=== PATIENT | female | born 1935 | race Caucasian/White ===

== ENCOUNTER 2017-06-26 11:03 | Inpatient (IN) | payer MEDICARE, MEDICAID ==
[2017-06-26] MEDS ORDERED: Sodium Chloride 0.9% 10 ML Syringe FLUSH PRN ×2 (11:16→17:17)
--- NOTE | 2017-06-26 11:21 | EDM.PDOC ---
ED HPI GENERAL MEDICAL PROBLEM - General Chief Complaint: Neuro Symptoms/Deficits Stated Complaint: STROKE SYMPTOMS Time Seen by Provider: 06/26/17 11:04 Source of Information: Reports: Patient, Retirement Records History Limitations: Reports: Altered Mental Status - History of Present Illness INITIAL COMMENTS - FREE TEXT/NARRATIVE: Patient is a 82 y/o female from [facility] who presents to the ED with left sided weakness, fatigue, not using her left arm, and flat affect. 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 Patient's last known well time was 1300 hrs. yesterday. Patient awoke this morning systematic. Patient complains of pain with urination. Denies fever/chills, headaches, vision changes, difficulty swallowing , nausea/vomiting, chest pain, shortness of breath, or any additional complaints. Patient is on baby aspirin 81 mg every day, Plavix 75 mg every day, potassium replacement 10 mEq 2 By Mouth Twice a Day, Amiodarone 200 Mg Every Day by Mouth Daily, levothyroxine 100 g orally one tab by mouth daily, lisinopril 10 mg one tab by mouth every evening and lisinopril 20 mg by mouth in the a.m. - Related Data Allergies Allergy/AdvReac Type Severity Reaction Status Date / Time strawberry [[place]] Allergy Hives Verified 06/26/17 11:42 Home Meds: Home Meds Aspirin [Low Dose Aspirin EC] 81 mg PO 1100 06/09/14 [History] Clopidogrel [Plavix] 75 mg PO 1100 06/09/14 [History] Lisinopril 20 mg PO 1100 06/09/14 [History] Potassium Chloride 20 meq PO 1100,1700 06/09/14 [History] Amiodarone [Cordarone] 400 mg PO 1100 08/23/14 [History] Levothyroxine [Synthroid] 88 mcg PO 1100 08/23/14 [History] Acetaminophen [Tylenol] 650 mg PO Q6H 06/26/17 [History] Lisinopril 10 mg PO 1700 06/26/17 [History] Methyl Salicylate/Menthol [Bengay Greaseless Cream] 57 gm TP BID PRN 06/26/17 [ History] Wheat Dextrin [Benefiber] 1 each PO DAILY 06/26/17 [History] Social & Family History - Tobacco Use Smoking Status *Q: Unknown Ever Smoked Second Hand Smoke Exposure: No - Alcohol Use Days Per Week of Alcohol Use: 0 - Recreational Drug Use Recreational Drug Use: No ED ROS GENERAL - Review of Systems Review Of Systems: See Below Constitutional: Reports: Weakness. Denies: Fever, Chills HEENT: Reports: No Symptoms Respiratory: Denies: Shortness of Breath, Cough, Sputum Cardiovascular: Denies: Chest Pain, Dyspnea on Exertion GI/Abdominal: Denies: Abdominal Pain, Constipation, Diarrhea, Nausea, Vomiting : Reports: Dysuria Musculoskeletal: Reports: No Symptoms Neurological: Reports: Headache, Difficulty Walking, Weakness. Denies: Dizziness, Numbness, Tingling ED EXAM, NEURO - Physical Exam Exam: See Below Exam Limited By: No Limitations General Appearance: Alert, WD/WN, No Apparent Distress Eye Exam: Bilateral Eye: EOMI, Nystagmus (none stated), PERRL Ears: Hearing Grossly Normal Nose: Normal Inspection Throat/Mouth: Normal Voice, No Airway Compromise, Other (Patient stated there is no reason to smile. Thus did not cooperate. ) Head Exam: Atraumatic, Normocephalic Neck: Normal Inspection, Supple, Non-Tender, Full Range of Motion Respiratory/Chest: No Respiratory Distress, Lungs Clear, Normal Breath Sounds, No Accessory Muscle Use, Chest Non-Tender Cardiovascular: Normal Peripheral Pulses, Regular Rate, Rhythm, No Murmur GI/Abdominal: Normal Bowel Sounds, Soft, No Organomegaly, No Distention, Tender (suprapubic region) Neurological: Alert, Normal Mood/Affect, CN II-XII Intact, No Motor/Sensory Deficits, Oriented x 3, Other (Positive facial droop, pronator drift, weakness to the upper and lower extremities.). No: Normal Dorsiflexion (Weakness to the left papers in the right), Normal Plantar Flexion (Weakness to the left in comparison to the right) Back Exam: Normal Inspection Extremities: Normal Inspection, Non-Tender, No Pedal Edema Psychiatric: Normal Affect, Normal Mood Skin Exam: Warm, Dry, Intact, Normal Color, No Rash Course - Vital Signs Last Recorded V/S: Last Vital Signs Temp 97.9 F 06/26/17 19:22 Pulse 59 L 06/26/17 19:22 Resp 18 06/26/17 19:22 BP 172/78 H 06/26/17 19:23 Pulse Ox 93 L 06/26/17 19:22 - Orders/Labs/Meds Orders: Active Orders 24 hr Category Date Time Status Head wo Cont [CT] Stat Exams 06/26/17 11:16 Taken Sodium Chloride 0.9% [Saline Flush] Med 06/26/17 11:16 Active 10 ml FLUSH ASDIRECTED PRN Peripheral IV Insertion Adult [OM.PC] Stat Oth 06/26/17 11:16 Ordered Medication Orders Acetaminophen (Tylenol) 650 mg PO Q4H PRN PRN Reason: Pain (Mild 1-3)/fever Last Admin: 06/26/17 21:18 Dose: 650 mg Hydrocodone Bitart/Acetaminophen ([place] 325-5 Mg) 1 tab PO Q4H PRN PRN Reason: Pain (moderate 4-6) Albuterol/Ipratropium (Duoneb 3.0-0.5 Mg/3 Ml) 3 ml NEB Q4H PRN PRN Reason: Shortness Of Breath/wheezing Amiodarone HCl (Cordarone) 400 mg PO DAILY@1100 [facility] Aspirin (Halfprin) 81 mg PO DAILY@1100 [facility] Bisacodyl (Dulcolax) 5 mg PO DAILY PRN PRN Reason: Constipation Clopidogrel Bisulfate (Plavix) 75 mg PO DAILY@1100 [facility] Docusate Sodium (Colace) 100 mg PO BID PRN PRN Reason: Constipation Hydromorphone HCl (Dilaudid) 0.25 mg IVPUSH Q4H PRN PRN Reason: Pain (severe 7-10) Promethazine HCl 12.5 mg/ (Sodium Chloride) 50.5 mls @ 100 mls/hr IV Q6H PRN PRN Reason: Nausea/Vomiting Levothyroxine Sodium (Synthroid) 88 mcg PO DAILY@1100 [facility] Lisinopril (Prinivil) 10 mg PO DAILY@1700 [facility] Lisinopril (Prinivil) 20 mg PO DAILY@1100 [facility] Lorazepam (Ativan) 0.25 mg IV Q6H PRN PRN Reason: Anxiety Last Admin: 06/26/17 21:19 Dose: 0.25 mg Non-Formulary Medication (Methyl Salicylate/Menthol) 57 gm TP BID PRN PRN Reason: sore joints Non-Formulary Medication (Wheat Dextrin [Benefiber]) 1 each PO DAILY [facility] Ondansetron HCl (Zofran) 4 mg IV Q6H PRN PRN Reason: Nausea/Vomiting Polyethylene Glycol (Miralax) 17 gm PO DAILY PRN PRN Reason: Constipation Potassium Chloride (Klor-Con 10) 20 meq PO BID@1100,1700 [facility] Senna/Docusate Sodium (Senna Plus) 1 tab PO BID PRN PRN Reason: Constipation Sodium Chloride (Saline Flush) 10 ml FLUSH ASDIRECTED PRN PRN Reason: Keep Vein Open Last Admin: 06/26/17 11:40 Dose: 10 ml Sodium Chloride (Saline Flush) 10 ml FLUSH ASDIRECTED PRN PRN Reason: Keep Vein Open Temazepam (Restoril) 7.5 mg PO BEDTIME PRN PRN Reason: Sleep Last Admin: 06/26/17 22:28 Dose: 7.5 mg Labs: Laboratory Tests 06/26/17 06/26/17 06/26/17 Range/Units 11:09 11:13 11:13 WBC 8.23 (3.98-10.04) K/mm3 RBC 5.10 (3.98-5.22) M/mm3 Hgb 15.0 (11.2-15.7) gm/L Hct 46.6 H (34.1-44.9) % MCV 91.4 (79.4-94.8) fl MCH 29.4 (25.6-32.2) pg MCHC 32.2 (32.2-35.5) g/dl RDW Std Deviation 52.4 H (36.4-46.3) fL Plt Count 256 (182-369) K/mm3 MPV 10.3 (9.4-12.3) fl Neut % (Auto) 55.2 (34.0-71.1) % Lymph % (Auto) 35.7 (19.3-51.7) % [place] % (Auto) 7.8 (4.7-12.5) % Eos % (Auto) 0.7 (0.7-5.8) Baso % (Auto) 0.4 (0.1-1.2) % Neut # (Auto) 4.54 (1.56-6.13) K/mm3 Lymph # (Auto) 2.94 (1.18-3.74) K/mm3 [place] # (Auto) 0.64 H (0.24-0.36) K/mm3 Eos # (Auto) 0.06 (0.04-0.36) K/mm3 Baso # (Auto) 0.03 (0.01-0.08) K/mm3 PT 10.5 (8.0-13.0) SECONDS INR 0.97 APTT 26 (22-36) SECONDS Sodium (136-145) mEq/L Potassium (3.5-5.1) mEq/L Chloride (98-107) mEq/L Carbon Dioxide (21-32) mEq/L Anion Gap (5-15) BUN (7-18) mg/dL Creatinine (0.55-1.02) mg/dL Est Cr Clr Drug Dosing mL/min Estimated GFR (MDRD) (>60) mL/min BUN/Creatinine Ratio (14-18) Glucose (83-115) mg/dL POC Glucose 133 H (83-110) mg/dL Calcium (8.5-10.1) mg/dL Total Bilirubin (0.2-1.0) mg/dL AST (15-37) U/L ALT (14-59) U/L Alkaline Phosphatase (46-116) U/L Troponin I (0.00-0.056) ng/mL C-Reactive Protein (<1.0) mg/dL Total Protein (6.4-8.2) g/dl Albumin (3.4-5.0) g/dl Globulin gm/dL Albumin/Globulin Ratio (1-2) TSH 3rd Generation (0.358-3.74) uIU/mL Urine Color (Yellow) Urine Appearance (Clear) Urine pH (5.0-8.0) Ur Specific [place] (1.005-1.030) Urine Protein (Negative) Urine Glucose (UA) (Negative) Urine Ketones (Negative) Urine Occult Blood (Negative) Urine Nitrite (Negative) Urine Bilirubin (Negative) Urine Urobilinogen (0.2-1.0) Ur Leukocyte Esterase (Negative) Urine RBC (0-5) /hpf Urine WBC (0-5) /hpf Ur Epithelial Cells (0-5) /hpf Urine Bacteria (FEW) /hpf Urine Mucus (FEW) /hpf 06/26/17 06/26/17 06/26/17 Range/Units 11:13 11:13 11:27 WBC (3.98-10.04) K/mm3 RBC (3.98-5.22) M/mm3 Hgb (11.2-15.7) gm/L Hct (34.1-44.9) % MCV (79.4-94.8) fl MCH (25.6-32.2) pg MCHC (32.2-35.5) g/dl RDW Std Deviation (36.4-46.3) fL Plt Count (182-369) K/mm3 MPV (9.4-12.3) fl Neut % (Auto) (34.0-71.1) % Lymph % (Auto) (19.3-51.7) % [place] % (Auto) (4.7-12.5) % Eos % (Auto) (0.7-5.8) Baso % (Auto) (0.1-1.2) % Neut # (Auto) (1.56-6.13) K/mm3 Lymph # (Auto) (1.18-3.74) K/mm3 [place] # (Auto) (0.24-0.36) K/mm3 Eos # (Auto) (0.04-0.36) K/mm3 Baso # (Auto) (0.01-0.08) K/mm3 PT (8.0-13.0) SECONDS INR APTT (22-36) SECONDS Sodium 142 (136-145) mEq/L Potassium 4.0 (3.5-5.1) mEq/L Chloride 105 (98-107) mEq/L Carbon Dioxide 25 (21-32) mEq/L Anion Gap 16.0 H (5-15) BUN 13 (7-18) mg/dL Creatinine 1.1 H (0.55-1.02) mg/dL Est Cr Clr Drug Dosing 34.26 mL/min Estimated GFR (MDRD) 47 (>60) mL/min BUN/Creatinine Ratio 11.8 L (14-18) Glucose 141 H (83-115) mg/dL POC Glucose (83-110) mg/dL Calcium 9.3 (8.5-10.1) mg/dL Total Bilirubin 0.6 (0.2-1.0) mg/dL AST 19 (15-37) U/L ALT 23 (14-59) U/L Alkaline Phosphatase 121 H (46-116) U/L Troponin I < 0.017 (0.00-0.056) ng/mL C-Reactive Protein 0.9 (<1.0) mg/dL Total Protein 7.5 (6.4-8.2) g/dl Albumin 3.9 (3.4-5.0) g/dl Globulin 3.6 gm/dL Albumin/Globulin Ratio 1.1 (1-2) TSH 3rd Generation 2.219 (0.358-3.74) uIU/mL Urine Color Yellow (Yellow) Urine Appearance Slt cloudy H (Clear) Urine pH 6.0 (5.0-8.0) Ur Specific [place] 1.015 (1.005-1.030) Urine Protein Negative (Negative) Urine Glucose (UA) Negative (Negative) Urine Ketones Negative (Negative) Urine Occult Blood Trace-lysed H (Negative) Urine Nitrite Negative (Negative) Urine Bilirubin Negative (Negative) Urine Urobilinogen 0.2 (0.2-1.0) Ur Leukocyte Esterase 3+ H (Negative) Urine RBC 0-5 (0-5) /hpf Urine WBC 50-75 H (0-5) /hpf Ur Epithelial Cells 0-5 (0-5) /hpf Urine Bacteria Many H (FEW) /hpf Urine Mucus Not seen (FEW) /hpf Meds: Medications Generic Name Dose Route Start Last Admin Trade Name Freq PRN Reason Stop Dose Admin Acetaminophen 650 mg 06/26/17 17:17 06/26/17 21:18 Tylenol PO 650 mg Q4H PRN Administration Pain (Mild 1-3)/fever Hydrocodone Bitart/Acetaminophen 1 tab 06/26/17 17:17 [place] 325-5 Mg PO Q4H PRN Pain (moderate 4-6) Albuterol/Ipratropium 3 ml 06/26/17 17:17 Duoneb 3.0-0.5 Mg/3 Ml NEB Q4H PRN Shortness Of Breath/wheezing Amiodarone HCl 400 mg 06/27/17 11:00 Cordarone PO DAILY@1100 [facility] Aspirin 81 mg 06/27/17 11:00 Halfprin PO DAILY@1100 [facility] Bisacodyl 5 mg 06/26/17 17:17 Dulcolax PO DAILY PRN Constipation Clopidogrel Bisulfate 75 mg 06/27/17 11:00 Plavix PO DAILY@1100 [facility] Docusate Sodium 100 mg 06/26/17 17:17 Colace PO BID PRN Constipation Hydromorphone HCl 0.25 mg 06/26/17 17:17 Dilaudid IVPUSH Q4H PRN Pain (severe 7-10) Promethazine HCl 12.5 mg/ 50.5 mls @ 100 mls/hr 06/26/17 17:17 Sodium Chloride IV Q6H PRN Nausea/Vomiting Levothyroxine Sodium 88 mcg 06/27/17 11:00 Synthroid PO DAILY@1100 [facility] Lisinopril 10 mg 06/27/17 17:00 Prinivil PO DAILY@1700 [facility] Lisinopril 20 mg 06/27/17 11:00 Prinivil PO DAILY@1100 [facility] Lorazepam 0.25 mg 06/26/17 17:17 06/26/17 21:19 Ativan IV 0.25 mg Q6H PRN Administration Anxiety Non-Formulary Medication 57 gm 06/26/17 17:23 Methyl Salicylate/Menthol TP BID PRN sore joints Non-Formulary Medication 1 each 06/27/17 09:00 Wheat Dextrin [Benefiber] PO DAILY [facility] Ondansetron HCl 4 mg 06/26/17 17:17 Zofran IV Q6H PRN Nausea/Vomiting Polyethylene Glycol 17 gm 06/26/17 17:17 Miralax PO DAILY PRN Constipation Potassium Chloride 20 meq 06/27/17 11:00 Klor-Con 10 PO BID@1100,1700 [facility] Senna/Docusate Sodium 1 tab 06/26/17 17:17 Senna Plus PO BID PRN Constipation Sodium Chloride 10 ml 06/26/17 11:16 06/26/17 11:40 Saline Flush FLUSH 10 ml ASDIRECTED PRN Administration Keep Vein Open Sodium Chloride 10 ml 06/26/17 17:17 Saline Flush FLUSH ASDIRECTED PRN Keep Vein Open Temazepam 7.5 mg 06/26/17 17:17 06/26/17 22:28 Restoril PO 7.5 mg BEDTIME PRN Administration Sleep Discontinued Medications Generic Name Dose Route Start Last Admin Trade Name Freq PRN Reason Stop Dose Admin Acetaminophen 650 mg 06/26/17 17:30 06/26/17 18:39 Tylenol PO Not Given Q6H [facility] Aspirin 243 mg 06/26/17 12:39 06/26/17 14:19 Aspirin PO 06/26/17 12:40 243 mg ONETIME ONE Administration Ceftriaxone Sodium 1 gm/ 100 mls @ 200 mls/hr 06/26/17 12:10 06/26/17 12:20 Sodium Chloride IV 06/26/17 12:39 200 mls/hr ONETIME ONE Administration Labetalol HCl 10 mg 06/26/17 11:26 06/26/17 11:37 Normodyne IVPUSH 06/26/17 11:27 10 mg ONETIME ONE Administration Protocol - Re-Assessments/Exams Free Text/Narrative Re-Assessment/Exam: Peripheral IV established. Initial labs and studies include CBC, chem 14, INR, PTT, troponin, TSH, UA, head CT without contrast, and EKG. 06/26/17 11:29 last known well time was approx. 1300 hrs yesterday. Patient awoke symptomatically this morning. CT the head reviewed with no signs for intracranial hemorrhage. Final interpretation pending. Blood pressure remains 215/94 with a heart rate of 71. Ordered labetalol 10 mg IVP. 06/26/17 11:32 EKG sinus rhythm at a rate of 69 with a left bundle branch block. No acute ST changes noted. This was compared to previous EKG obtained 07/2014. Patient had incomplete left bundle branch block at that time. CT of the head impression: Senescent changes noted. No acute intracranial abnormality. 06/26/17 11:52 Reassessment, patients condition unchanged. BP 168/75 HR 58. Son is present. Discussed findings with him and testing taking place. Requests patient stay here in [place] if able. Patient is a DNR. Labs reviewed: White blood cell count 8.23, hemoglobin 15.0, platelets 256, coags are normal, sodium 142, potassium 4.0, AG 16, creatinine 1.1, glucose 141 , alk phosphatase 121, troponin less than 0.017, TSH is 2.219. UA slightly cloudy, trace blood, leukocyte esterase 3+, wbc's 50-75, bacteria many. Urine culture ordered. Ordered rocephin 1 gram IV. QTc is 536. Preferred levaquin but this can prolong QT. 06/26/17 12:[address] Lopez. He has accepted the patient. 1216 Reassessment, patient is resting comfortably. No complaints at this time. Weakness persist. Patient did finally smile with facial droop noted to the left side. Minimal slurred speech. No difficulty swallowing. 06/26/17 13:10 patient took 81 mg of aspirin this morning. Ordered 243 mg by mouth. Awaiting for patient be transferred over to the floor. Vital signs stable. Patient's status unchanged. Patient has been taken over to the floor. 06/26/17 14:14 Order for admission placed. Departure - Departure Time of Disposition: 14:14 Disposition: Admitted As Inpatient 64 Condition: Fair Clinical Impression: Stroke-like symptom Cerebrovascular accident (CVA) Qualifiers: CVA mechanism: embolism Precerebral and cerebral artery: unspecified cerebral artery Qualified Code(s): I63.40 - Cerebral infarction due to embolism of unspecified cerebral artery Urinary tract infection Qualifiers: Urinary tract infection type: acute cystitis Hematuria presence: with hematuria Qualified Code(s): N30.01 - Acute cystitis with hematuria - Discharge Information - My Orders Last 24 Hours: My Active Orders 06/26/17 11:16 Head wo Cont [CT] Stat Sodium Chloride 0.9% [Saline Flush] 10 ml FLUSH ASDIRECTED PRN Peripheral IV Insertion Adult [OM.PC] Stat - Assessment/Plan Last 24 Hours: My Active Orders 06/26/17 11:16 Head wo Cont [CT] Stat Sodium Chloride 0.9% [Saline Flush] 10 ml FLUSH ASDIRECTED PRN Peripheral IV Insertion Adult [OM.PC] Stat
[2017-06-26] MEDS ORDERED: Labetalol 100 MG/20 ML MDV IVPUSH ONE (11:26)
[2017-06-26] MEDS ORDERED: cefTRIAXone 1 GM in Sodium Chloride 0.9% 100 ML IV ONE (12:10)
[2017-06-26] MEDS ORDERED: Aspirin 81 MG Tab.Chew PO ONE (12:39)
--- NOTE | 2017-06-26 13:06 | PCM.HP ---
H&P History of Present Illness - General Date of Service: 06/26/17 Admit Problem/Dx: CVA Source of Information: Patient, Family, Old Records, Provider, RN Notes Reviewed History Limitations: Reports: Physical Impairment - History of Present Illness Initial Comments - Free Text/Narative: This is an 82 yo elderly white female with past medical hx/o HTN, HLD, Hypothyroidism, Hypokalemia and Hypomagnesemia, Pseudogout, Hx/o Cardiac Arrhythmia on Amiodarone, OA, and Depression who presents to ED with complaints of generalized weakness that started today. Her chief of complaint is associated with fatigue, 2 assist with standing, dragging left foot with walking and not using her left arm as well as flat affect. Patient carries a hx/o CVA with Aspiration. She lives at [place] and is very independent. Her last known well was at about 1300 yesterday but woke up with the above symptoms this morning. Patient reports no issues. She denies any other neurologic deficits. Her initial workup in the emergency department shows a CBC that is unremarkable. Her chemistry is remarkable for anion gap 16, creatinine of 1.1, glucose of 141, alkaline phosphatase of 131. Her troponin and TSH levels are normal. Her UA is positive but not impressive for UTI. Her EKG shows sinus rhythm. Head CT scan V-rad report reads no acute intra-cranial abnormality. Patient is being admitted for medical management of stroke. She is DNR/DNI. - Related Data Allergies/Adverse Reactions: Allergies Allergy/AdvReac Type Severity Reaction Status Date / Time strawberry [[place]] Allergy Hives Verified 06/26/17 11:42 Home Medications: Home Meds Aspirin [Low Dose Aspirin EC] 81 mg PO 1100 06/09/14 [History] Clopidogrel [Plavix] 75 mg PO 1100 06/09/14 [History] Lisinopril 20 mg PO 1100 06/09/14 [History] Potassium Chloride 20 meq PO 1100,1700 06/09/14 [History] Amiodarone [Cordarone] 400 mg PO 1100 08/23/14 [History] Levothyroxine [Synthroid] 88 mcg PO 1100 08/23/14 [History] Acetaminophen [Tylenol] 650 mg PO Q6H 06/26/17 [History] Lisinopril 10 mg PO 1700 06/26/17 [History] Methyl Salicylate/Menthol [B[place] Greaseless Cream] 57 gm TP BID PRN 06/26/17 [ History] Wheat Dextrin [Benefiber] 1 each PO DAILY 06/26/17 [History] Past Medical History HEENT History: Reports: Impaired Vision Cardiovascular History: Reports: Hypertension, Other (See Below) Other Cardiovascular History: Pt on amioderone unsure why denies any heart problems MEDICAL LANGUAGE SPECIALIST History: Reports: Endocrine/Metabolic History: Reports: Hypothyroidism Social & Family History - Family History Family Medical History: Unobtainable - Tobacco Use Smoking Status *Q: Unknown Ever Smoked Second Hand Smoke Exposure: No - Caffeine Use Caffeine Use: Reports: Coffee - Alcohol Use Days Per Week of Alcohol Use: 0 - Recreational Drug Use Recreational Drug Use: No H&P Review of Systems - Review of Systems: Review Of Systems: See Below General: Reports: Weakness. Denies: Fever, Chills HEENT: Reports: No Symptoms Pulmonary: Denies: Shortness of Breath Cardiovascular: Denies: Chest Pain Gastrointestinal: Denies: Abdominal Pain, Nausea, Vomiting Genitourinary: Reports: No Symptoms Musculoskeletal: Reports: No Symptoms Skin: Denies: Cyanosis, Rash, Erythema Psychiatric: Reports: Depression. Denies: Confusion, Anxiety, Agitation, Hallucinations, Suicidal Ideation, Hallucinations (Auditory) Neurological: Reports: Headache, Difficulty Walking, Weakness, Gait Disturbance. Denies: Dizziness, Numbness, Syncope, Tingling, Tremors, Trouble Speaking, Change in Speech Hematologic/Lymphatic: Reports: No Symptoms Immunologic: Reports: No Symptoms Exam - Exam Exam: See Below - Vital Signs Vital Signs: Last Vital Signs Temp 36.3 C 06/26/17 11:10 Pulse 61 06/26/17 11:37 Resp 18 06/26/17 11:10 BP 182/131 H 06/26/17 11:37 Pulse Ox 97 06/26/17 11:10 Weight: 74.843 kg - Exam General: Alert, Cooperative, Mild Distress HEENT: Conjunctiva Clear, EACs Clear, EOMI, Hearing Intact, Mucosa Moist & [place] , Nares Patent, Normal Nasal Septum, Posterior Pharynx Clear, Pupils Equal, Pupils Reactive Neck: Supple, Trachea Midline, +2 Carotid Pulse wo Bruit Lungs: Normal Respiratory Effort, Decreased Breath Sounds Cardiovascular: Regular Rate, Regular Rhythm GI/Abdominal Exam: Normal Bowel Sounds, Soft, Non-Tender, No Organomegaly, No Distention, No Abnormal Bruit, No Mass, Other (No suprapubic tenderness on palpation) (Female) Exam: Deferred Rectal (Female) Exam: Deferred Back Exam: Normal Inspection, Decreased Range of Motion. No: CVA Tenderness (L) , CVA Tenderness (R) Extremities: Normal Inspection, Normal Range of Motion, Non-Tender, No Pedal Edema, Normal Capillary Refill Peripheral Pulses: 2+: Posterior Tibial (L), Posterior Tibial (R), Dorsalis Pedis (L), Dorsalis Pedis (R) Skin: Warm, Dry, Intact Neuro Extensive - Mental Status: Oriented x3, Normal Cognition, Memory Intact Neuro Extensive - Motor, Sensory, Reflexes: Abnormal Gait. No: CN II-XII Intact (left sided weakness, pos pronator drift, facial droop, could not make wrinkes), Tongue Deviation (L), Tongue Deviation (R), Dysarthria, Receptive Aphasia, Expressive Aphasia, Total Aphasia Psychiatric: Alert, Normal Mood. 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 with a documented BP of 216/93 mmHg - Risk Factors: Hx/o CVA with residual aspiration, HTN, HLD, and Hx/o Cardiac Arrhythmias (on Amiodarone) - Head CT scan: negative for acute intra-cranial abnormality - She is already on 81 mg po ASA, 75 mg po Plavix and Lipitor 10 mg po daily - Stroke Protocol: Aspiration precaution, bedside swallowing study, [employer]GER eval , PT/OT and Routine Neuro check - Unclear how how was her symptoms, since she woke up with symptoms - She would not be a good candidate for TPN, very high with her advance age and being on combo ASA/Plavix - Recommendations: Permissive hypertension with SBP 180-190 mmHg - Offered MRI/MRA in am but after carefully discussing the goals of treatment for her, family decided not to have Brain MRI and Head/Neck MRA since it unlikely that our medical management would change Malignant HTN - Unknown baseline, she does not really check her BP Meds - She presented to ED in Malignant HTN with a documented BP of 216/93 mmHg - She received initial treatment of 10 mg IV Labetolol x1 and her pressure dropped to 159/73 - Allow Permissive HTN in the setting of stroke - PRN Meds if SBP > 220 mmHg or DBP > 120 mmHg w/ Labetolol 10 mg IV for 1-2 mins may repeat dsoe q 10 mins to a maximum dose of 300 mg. If no response, may use Nicardipine IV per protocol Asymptomatic Bacteriuria - UA not very impressive - She has no complaints - Received 1 gram Rocephin in ED - UA Cx/Sx Chronic: HTN HLD Hypothyroidism Hypokalemia and Hypomagnesemia Pseudogout OA Hx/o CVA with Aspiration Hx/o Cardiac Arrhythmia Depression Plan: Admit to Med-Surge With Tele Routine AM Labs Resume Home Meds Lipid Panel in AM Carotid Duplex U/S PT/OT/[employer] MANAGER consult SW/CM for d/c planning May need short tem rehab/SNF Code status: DNR/DNI Additional orders as above
[2017-06-26] MEDS ORDERED: Ondansetron 4 MG/2 ML SDV IV PRN (17:17)
[2017-06-26] MEDS ORDERED: HYDROmorphone 1 MG/ML Syringe IVPUSH PRN (17:17)
[2017-06-26] MEDS ORDERED: Docusate Sodium 100 MG Cap PO PRN (17:17)
[2017-06-26] MEDS ORDERED: LORazepam 2 MG/ML MDV IV PRN (17:17)
[2017-06-26] MEDS ORDERED: Albuterol/Ipratropium 3.0-0.5 MG/3 ML Neb Soln NEB PRN (17:17)
[2017-06-26] MEDS ORDERED: Promethazine 12.5 MG in Sodium Chloride 0.9% 50 ML IV PRN (17:17)
[2017-06-26] MEDS ORDERED: Bisacodyl 5 MG Tab PO PRN (17:17)
[2017-06-26] MEDS ORDERED: Polyethylene Glycol 3350 Powder 17 GM Packet PO PRN (17:17)
[2017-06-26] MEDS ORDERED: Acetaminophen 325 MG Tab PO SCH (17:30)
[2017-06-26] MEDS: Acetaminophen 325 MG Tab PO PRN (21:18)
[2017-06-26] MEDS: Temazepam 7.5 MG Cap PO PRN (22:28)
[2017-06-27] MEDS ORDERED: HYDROmorphone 0.5 MG/0.5 ML Syringe IVPUSH PRN (07:38)
--- NOTE | 2017-06-27 07:57 | PCM.PN ---
- General Info Date of Service: 06/27/17 Admission Dx/Problem (Free Text): CVA Functional Status: Reports: Pain Controlled, Tolerating Diet, Ambulating, Urinating. Denies: New Symptoms - Review of Systems General: Reports: No Symptoms. Denies: Fever, Weakness, Fatigue HEENT: Reports: No Symptoms Pulmonary: Reports: No Symptoms Cardiovascular: Reports: No Symptoms Gastrointestinal: Reports: No Symptoms Genitourinary: Reports: No Symptoms Musculoskeletal: Reports: No Symptoms Skin: Reports: No Symptoms Neurological: Reports: No Symptoms. Denies: Confusion, Dizziness, Headache, Numbness, Paresthesia, Syncope, Tingling, Trouble Speaking, Difficulty Walking, Weakness, Change in Speech Psychiatric: Reports: No Symptoms - Patient Data Vitals - Most Recent: Last Vital Signs Temp 97.9 F 06/26/17 19:22 Pulse 64 06/27/17 01:39 Resp 18 06/27/17 01:39 BP 170/99 H 06/27/17 01:39 Pulse Ox 92 L 06/27/17 01:39 Weight - Most Recent: 173 lb 8 oz I&O - Last 24 Hours: Intake & Output 06/26/17 06/27/17 06/27/17 22:59 06:59 14:59 Intake Total 340 120 Output Total 200 300 Balance 140 -180 Lab Results Last 24 Hours: Laboratory Results - last 24 hr 06/26/17 06/27/17 06/27/17 Range/Units 15:54 05:35 05:35 WBC 6.83 (3.98-10.04) K/mm3 RBC 4.60 (3.98-5.22) M/mm3 Hgb 13.8 (11.2-15.7) gm/L Hct 42.5 (34.1-44.9) % MCV 92.4 (79.4-94.8) fl MCH 30.0 (25.6-32.2) pg MCHC 32.5 (32.2-35.5) g/dl RDW Std Deviation 52.0 H (36.4-46.3) fL Plt Count 231 (182-369) K/mm3 MPV 10.2 (9.4-12.3) fl Neut % (Auto) 50.1 (34.0-71.1) % Lymph % (Auto) 36.3 (19.3-51.7) % [place] % (Auto) 11.4 (4.7-12.5) % Eos % (Auto) 1.5 (0.7-5.8) Baso % (Auto) 0.4 (0.1-1.2) % Neut # (Auto) 3.42 (1.56-6.13) K/mm3 Lymph # (Auto) 2.48 (1.18-3.74) K/mm3 [place] # (Auto) 0.78 H (0.24-0.36) K/mm3 Eos # (Auto) 0.10 (0.04-0.36) K/mm3 Baso # (Auto) 0.03 (0.01-0.08) K/mm3 Sodium 144 (136-145) mEq/L Potassium 3.6 (3.5-5.1) mEq/L Chloride 109 H (98-107) mEq/L Carbon Dioxide 24 (21-32) mEq/L Anion Gap 14.6 (5-15) BUN 13 (7-18) mg/dL Creatinine 1.2 H (0.55-1.02) mg/dL Est Cr Clr Drug Dosing 31.40 mL/min Estimated GFR (MDRD) 43 (>60) mL/min BUN/Creatinine Ratio 10.8 L (14-18) Glucose 96 (83-115) mg/dL Calcium 8.9 (8.5-10.1) mg/dL Magnesium 2.0 (1.8-2.4) mg/dl Triglycerides 122 (<150) mg/dL Cholesterol 235 H (<200) mg/dL LDL Cholesterol Direct 169 H* (<100) mg/dL HDL Cholesterol 61.0 H (40-59) mg/dL MRSA (PCR) Negative Med Orders - Current: Current Medications Acetaminophen (Tylenol) 650 mg PO Q4H PRN PRN Reason: Pain (Mild 1-3)/fever Last Admin: 06/26/17 21:18 Dose: 650 mg Hydrocodone Bitart/Acetaminophen ([place] 325-5 Mg) 1 tab PO Q4H PRN PRN Reason: Pain (moderate 4-6) Albuterol/Ipratropium (Duoneb 3.0-0.5 Mg/3 Ml) 3 ml NEB Q4H PRN PRN Reason: Shortness Of Breath/wheezing Amiodarone HCl (Cordarone) 400 mg PO DAILY@1100 [facility] Amlodipine Besylate (Norvasc) 5 mg PO DAILY [facility] Aspirin (Halfprin) 81 mg PO DAILY@1100 [facility] Bisacodyl (Dulcolax) 5 mg PO DAILY PRN PRN Reason: Constipation Clopidogrel Bisulfate (Plavix) 75 mg PO DAILY@1100 [facility] Docusate Sodium (Colace) 100 mg PO BID PRN PRN Reason: Constipation Hydrochlorothiazide (Hydrochlorothiazide) 12.5 mg PO DAILY [facility] Hydromorphone HCl (Dilaudid) 0.25 mg IVPUSH Q4H PRN PRN Reason: Pain (severe 7-10) Promethazine HCl 12.5 mg/ (Sodium Chloride) 50.5 mls @ 100 mls/hr IV Q6H PRN PRN Reason: Nausea/Vomiting Levothyroxine Sodium (Synthroid) 88 mcg PO DAILY@1100 [facility] Lisinopril (Prinivil) 20 mg PO BID [facility] Lorazepam (Ativan) 0.25 mg IV Q6H PRN PRN Reason: Anxiety Last Admin: 06/26/17 21:19 Dose: 0.25 mg Methyl Salicylate (Analgesic [place]) 0 gm TOP BID PRN PRN Reason: sore joints Ondansetron HCl (Zofran) 4 mg IV Q6H PRN PRN Reason: Nausea/Vomiting Wheat Dextrin [ (Benefiber]) 0 each PO DAILY [facility] Polyethylene Glycol (Miralax) 17 gm PO DAILY PRN PRN Reason: Constipation Potassium Chloride (Klor-Con 10) 20 meq PO BID@1100,1700 [facility] Rosuvastatin Calcium (Crestor) 10 mg PO BEDTIME [facility] Senna/Docusate Sodium (Senna Plus) 1 tab PO BID PRN PRN Reason: Constipation Sodium Chloride (Saline Flush) 10 ml FLUSH ASDIRECTED PRN PRN Reason: Keep Vein Open Last Admin: 06/26/17 11:40 Dose: 10 ml Sodium Chloride (Saline Flush) 10 ml FLUSH ASDIRECTED PRN PRN Reason: Keep Vein Open Temazepam (Restoril) 7.5 mg PO BEDTIME PRN PRN Reason: Sleep Last Admin: 06/26/17 22:28 Dose: 7.5 mg Discontinued Medications Acetaminophen (Tylenol) 650 mg PO Q6H [facility] Last Admin: 06/26/17 18:39 Dose: Not Given Aspirin (Aspirin) 243 mg PO ONETIME ONE Stop: 06/26/17 12:40 Last Admin: 06/26/17 14:19 Dose: 243 mg Hydromorphone HCl (Dilaudid) 0.25 mg IVPUSH Q4H PRN PRN Reason: Pain (severe 7-10) Ceftriaxone Sodium 1 gm/ (Sodium Chloride) 100 mls @ 200 mls/hr IV ONETIME ONE Stop: 06/26/17 12:39 Last Admin: 06/26/17 12:20 Dose: 200 mls/hr Labetalol HCl (Normodyne) 10 mg IVPUSH ONETIME ONE PRN Reason: Protocol Stop: 06/26/17 11:27 Last Admin: 06/26/17 11:37 Dose: 10 mg Lisinopril (Prinivil) 10 mg PO DAILY@1700 [facility] Lisinopril (Prinivil) 20 mg PO DAILY@1100 [facility] - Exam Quality Assessment: DVT Prophylaxis General: Alert, Oriented, Cooperative, No Acute Distress HEENT: Pupils Equal, EOMI, Mucous Membr. Moist/[place] Neck: Supple Lungs: Clear to Auscultation, Normal Respiratory Effort Cardiovascular: Regular Rate, Regular Rhythm GI/Abdominal Exam: Normal Bowel Sounds, Soft, Non-Tender (Female) Exam: Deferred Extremities: Normal Inspection, No Pedal Edema, Normal Capillary Refill Peripheral Pulses: 2+: Radial (L), Radial (R), Dorsalis Pedis (L), Dorsalis Pedis (R) Skin: Warm, Dry, Intact Neurological: Normal Speech, Normal Tone, Strength Equal Bilateral, Cranial Nerves Intact Psy/Mental Status: Alert, Normal Affect, Normal Mood - Problem List & Annotations (1) Cerebrovascular accident (CVA) SNOMED Code(s): 552748774 Code(s): I63.9 - CEREBRAL INFARCTION, UNSPECIFIED Status: Acute Priority : High Current Visit: Yes Qualifiers: CVA mechanism: embolism Precerebral and cerebral artery: unspecified cerebral artery Qualified Code(s): I63.40 - Cerebral infarction due to embolism of unspecified cerebral artery (2) HTN (hypertension) SNOMED Code(s): 38012200 Code(s): I10 - ESSENTIAL (PRIMARY) HYPERTENSION Status: Acute Priority: High Current Visit: Yes (3) Urinary tract infection SNOMED Code(s): 03931240 Code(s): N39.0 - URINARY TRACT INFECTION, SITE NOT SPECIFIED Status: Acute Priority: High Current Visit: Yes Qualifiers: Urinary tract infection type: acute cystitis Hematuria presence: with hematuria Qualified Code(s): N30.01 - Acute cystitis with hematuria - Problem List Review Problem List Initiated/Reviewed/Updated: Yes - My Orders Last 24 Hours: My Active Orders 06/27/17 08:00 Hydrochlorothiazide 12.5 mg PO DAILY Rosuvastatin [Crestor] 10 mg PO BEDTIME amLODIPine [Norvasc] 5 mg PO DAILY 06/27/17 09:00 Lisinopril [Prinivil] 20 mg PO BID - Plan Plan:: Assessment/Plan: 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, Pronator Drift, and Facial Droop - She presented to ED in Malignant HTN with a documented BP of 216/93 mmHg - Risk Factors: Hx/o CVA with residual aspiration, HTN, HLD, and Hx/o Cardiac Arrhythmias (on Amiodarone) - Head CT scan: negative for acute intra-cranial abnormality - She is already on 81 mg po ASA, 75 mg po Plavix - Stroke Protocol: Aspiration precaution, bedside swallowing study, PERSONAL SERVICE REPRESENTATIVE eval , PT/OT and Routine Neuro check - Unclear how how was her symptoms, since she woke up with symptoms--not candidate for TPA - Recommendations: Permissive hypertension with SBP 180-190 mmHg - Offered MRI/MRA in am but after carefully discussing the goals of treatment for her, family decided not to have Brain MRI and Head/Neck MRA since it unlikely that our medical management would change Malignant HTN - Unknown baseline, she does not really check her BP Meds - She presented to ED in Malignant HTN with a documented BP of 216/93 mmHg - She received initial treatment of 10 mg IV Labetolol x1 and her pressure dropped to 159/73 - Allow Permissive HTN in the setting of stroke - PRN Meds if SBP > 220 mmHg or DBP > 120 mmHg w/ Labetolol 10 mg IV for 1-2 mins may repeat dsoe q 10 mins to a maximum dose of 300 mg. If no response, may use Nicardipine IV per protocol -B/P's 170-180 systolic this morning; will add amlodipine 5mg and HCTZ 12.5mg today; hydralazine IVP PRN with parameters UTI- UC with GNR - Received 1 gram Rocephin in ED- will cont Rocephin 1gm Q24hrs - Sensitivity pending Chronic: HTN--uncontrolled, as above HLD -Lipid panel: total 235, trigs 122, 169 LDL, 61 HDL -Was not on statin at home, will add crestor 10mg daily Hypothyroidism--TSH WNL 2.219 Hypokalemia and Hypomagnesemia--corrected Pseudogout OA Hx/o CVA with Aspiration Hx/o Cardiac Arrhythmia Depression Plan: Admit to Med-Surge With Tele Routine AM Labs Resume Home Meds Lipid Panel in AM--as above Carotid Duplex U/S - to be done today PT/OT/PERSONAL SERVICE REPRESENTATIVE consult SW/CM for d/c planning May need short tem rehab/SNF Code status: DNR/DNI Additional orders as above
--- NOTE | 2017-06-27 08:00 | CT ---
Head CT Technique: Multiple axial sections through the brain were obtained. Intravenous contrast was not utilized. Comparison: Previous head CT exam of 06/09/14. Findings: Ventricles along with basal cisterns and sulci over the convexities are mildly prominent. Diffuse diminished density noted within the periventricular white matter and subcortical white matter compatible with small vessel ischemic demyelination change. Small old white matter infarcts are also seen as well as old basal ganglia lacunar infarcts. No acute abnormal parenchymal density is appreciated. No evidence of intracranial hemorrhage. No midline shift or mass effect is seen. Incidental scalp lesion identified within the left parietal area. This is equivocally increased in size and please correlate as to etiology. This currently measures 8.7 mm in size. Slight mucosal thickening noted within the left mastoid sinus which is an interval change from previous exam. Paranasal sinuses that are seen appear clear. No acute calvarial abnormality is identified. Impression: 1. Scalp lesion within the left parietal region slightly increased in size. Please correlate if etiology can be determined clinically. 2. Senescent change as described above. 3. Mucosal thickening within the left mastoid sinus as an interval change from prior exam. This is likely incidental if patient has no signs of mastoiditis and may represent retained secretions. 4. No acute intracranial abnormality is otherwise seen. Diagnostic code #3 I agree with preliminary report issued by [facility] ([facility] preliminary report dictated on 06/26/17, 12:26 PM Central Time)
--- NOTE | 2017-06-27 09:51 | US ---
Carotid ultrasound: Duplex and color flow imaging was obtained of the carotid arteries. Focal amount of plaque identified within the carotid bulb which is moderate in amount. Lesser plaque is identified within the right carotid bulb. Plaque shows irregular surface margins on the left side. Velocity measurements Right side: CCA has a peak systolic velocity of 0.60 m/s. ICA has a peak systolic velocity of 0.50 m/s and peak end-diastolic velocity of 0.13 m/s. ECA has a peak systolic velocity of 0.86 m/s. Vertebral artery has a peak systolic velocity of 0.22 m/s. ICA/CCA ratio is 0.8. Left side: CCA has a peak systolic velocity of 0.80 m/s. ICA has a peak systolic velocity of 0.65 m/s and peak end-diastolic velocity of 0.16 m/s. ECA has a peak systolic velocity of 0.84 m/s. Vertebral artery has a peak systolic velocity of 0.45 m/s. ICA/CCA ratio is 0.8. Impression: 1. Moderate amount of plaque within the left carotid bulb showing irregular surface contour. 2. Velocity measurements within both internal carotid arteries correspond to stenosis in the range of 1-49%. Diagnostic code #3
[2017-06-27] MEDS: Levothyroxine 88 MCG Tab PO SCH (10:09)
[2017-06-27] MEDS: Aspirin 81 MG Tab.EC PO SCH (10:09)
[2017-06-27] MEDS: Amiodarone 200 MG Tab PO SCH (10:09)
[2017-06-27] MEDS: Potassium Chloride 10 MEQ Tab.ER PO SCH ×2 (10:09→17:03)
[2017-06-27] MEDS: Hydrochlorothiazide 12.5 MG Cap PO SCH ×2 (10:09→10:15)
[2017-06-27] MEDS: amLODIPine 5 MG Tab PO SCH ×2 (10:09→10:14)
[2017-06-27] MEDS: Clopidogrel 75 MG Tab PO SCH (10:09)
[2017-06-27] MEDS: Wheat Dextrin [Benefiber] PO SCH (10:10)
[2017-06-27] MEDS: Lisinopril 20 MG Tab PO SCH ×2 (10:10→20:44)
[2017-06-27] MEDS ORDERED: Diphtheria,Pertussis(Acell),Tetanus Vaccine 0.5 ML SDV IM ONE (10:30)
[2017-06-27] MEDS ORDERED: Lisinopril 20 MG Tab PO SCH (11:00)
[2017-06-27] MEDS: cefTRIAXone 1 GM in Sodium Chloride 0.9% 100 ML IV SCH (11:50)
[2017-06-27] MEDS: Menthol/Methyl Salicylate 29 GM Tube TOP PRN (11:52)
[2017-06-27] MEDS: hydrALAZINE 20 MG/ML SDV IVPUSH PRN (13:12)
[2017-06-27] MEDS: Rosuvastatin 10 MG Tab PO SCH ×2 (14:34→20:44)
[2017-06-27] MEDS ORDERED: Lisinopril 10 MG Tab PO SCH (17:00)
[2017-06-27] MEDS: Acetaminophen 325 MG Tab PO PRN (17:37)
[2017-06-27] MEDS: Temazepam 7.5 MG Cap PO PRN (20:44)
[2017-06-28] MEDS: hydrALAZINE 20 MG/ML SDV IVPUSH PRN (06:44)
[2017-06-28] MEDS: Hydrochlorothiazide 12.5 MG Cap PO SCH (08:22)
[2017-06-28] MEDS: amLODIPine 5 MG Tab PO SCH (08:23)
[2017-06-28] MEDS: Lisinopril 20 MG Tab PO SCH ×2 (08:24→20:42)
[2017-06-28] MEDS: Wheat Dextrin [Benefiber] PO SCH (08:28)
--- NOTE | 2017-06-28 08:51 | PCM.PN ---
- General Info Date of Service: 06/28/17 Admission Dx/Problem (Free Text): CVA Subjective Update: Follow Up Functional Status: Reports: Pain Controlled, Tolerating Diet, Urinating, New Symptoms - Review of Systems General: Reports: Weakness. Denies: Fever HEENT: Reports: No Symptoms Pulmonary: Denies: Shortness of Breath Cardiovascular: Denies: Chest Pain Gastrointestinal: Denies: Abdominal Pain, Nausea, Vomiting Genitourinary: Reports: Incontinence Musculoskeletal: Reports: No Symptoms Neurological: Reports: Confusion Psychiatric: Denies: Depression, Anxiety, Agitation, Hallucinations Systems Review Comment:: Patient appears to be significantly more weak than usual on her left hand. She was unable to participate with activities. Her right leg seems to be weaker as well. This morning she had a hard time sitting up with PT. However I was informed she was up mostly last night. She just started to fall sleep early this morning. On at the time of my examination, she was sluggish and looked confused, more weak than usual. She was unable to perform/follow simple commands. Vitals goff, she is hemodynmically stable. - Patient Data Vitals - Most Recent: Last Vital Signs Temp 36.4 C 06/28/17 07:37 Pulse 79 06/28/17 07:37 Resp 14 06/28/17 07:37 BP 110/85 06/28/17 08:26 Pulse Ox 92 L 06/28/17 07:37 Weight - Most Recent: 78.608 kg I&O - Last 24 Hours: Intake & Output 06/27/17 06/28/17 06/28/17 22:59 06:59 14:59 Intake Total 460 425 Output Total 250 400 Balance 210 25 Lab Results Last 24 Hours: Laboratory Results - last 24 hr 06/28/17 Range/Units 05:50 Sodium 141 (136-145) mEq/L Potassium 3.7 (3.5-5.1) mEq/L Chloride 106 (98-107) mEq/L Carbon Dioxide 24 (21-32) mEq/L Anion Gap 14.7 (5-15) BUN 19 H (7-18) mg/dL Creatinine 1.1 H (0.55-1.02) mg/dL Est Cr Clr Drug Dosing 34.26 mL/min Estimated GFR (MDRD) 47 (>60) mL/min BUN/Creatinine Ratio 17.3 (14-18) Glucose 111 (83-115) mg/dL Calcium 9.9 (8.5-10.1) mg/dL Magnesium 1.9 (1.8-2.4) mg/dl Med Orders - Current: Current Medications Acetaminophen (Tylenol) 650 mg PO Q4H PRN PRN Reason: Pain (Mild 1-3)/fever Last Admin: 06/27/17 17:37 Dose: 650 mg Hydrocodone Bitart/Acetaminophen ([place] 325-5 Mg) 1 tab PO Q4H PRN PRN Reason: Pain (moderate 4-6) Albuterol/Ipratropium (Duoneb 3.0-0.5 Mg/3 Ml) 3 ml NEB Q4H PRN PRN Reason: Shortness Of Breath/wheezing Amiodarone HCl (Cordarone) 400 mg PO DAILY@1100 [facility] Last Admin: 06/27/17 10:09 Dose: 400 mg Amlodipine Besylate (Norvasc) 5 mg PO DAILY [facility] Last Admin: 06/28/17 08:23 Dose: 5 mg Aspirin (Halfprin) 81 mg PO DAILY@1100 [facility] Last Admin: 06/27/17 10:09 Dose: 81 mg Bisacodyl (Dulcolax) 5 mg PO DAILY PRN PRN Reason: Constipation Clopidogrel Bisulfate (Plavix) 75 mg PO DAILY@1100 [facility] Last Admin: 06/27/17 10:09 Dose: 75 mg Docusate Sodium (Colace) 100 mg PO BID PRN PRN Reason: Constipation Hydralazine HCl (Apresoline) 20 mg IVPUSH Q4H PRN PRN Reason: Hypertension Last Admin: 06/28/17 06:44 Dose: 20 mg Hydrochlorothiazide (Hydrochlorothiazide) 12.5 mg PO DAILY [facility] Last Admin: 06/28/17 08:22 Dose: 12.5 mg Hydromorphone HCl (Dilaudid) 0.25 mg IVPUSH Q4H PRN PRN Reason: Pain (severe 7-10) Promethazine HCl 12.5 mg/ (Sodium Chloride) 50.5 mls @ 100 mls/hr IV Q6H PRN PRN Reason: Nausea/Vomiting Ceftriaxone Sodium 1 gm/ (Sodium Chloride) 100 mls @ 200 mls/hr IV Q24H [facility] Last Admin: 06/27/17 11:50 Dose: 200 mls/hr Levothyroxine Sodium (Synthroid) 88 mcg PO DAILY@1100 [facility] Last Admin: 06/27/17 10:09 Dose: 88 mcg Lisinopril (Prinivil) 20 mg PO BID [facility] Last Admin: 06/28/17 08:24 Dose: 20 mg Lorazepam (Ativan) 0.25 mg IV Q6H PRN PRN Reason: Anxiety Last Admin: 06/26/17 21:19 Dose: 0.25 mg Methyl Salicylate (Analgesic [place]) 0 gm TOP BID PRN PRN Reason: sore joints Last Admin: 06/27/17 11:52 Dose: 1 applic Ondansetron HCl (Zofran) 4 mg IV Q6H PRN PRN Reason: Nausea/Vomiting Wheat Dextrin [ (Benefiber]) 0 each PO DAILY [facility] Last Admin: 06/28/17 08:28 Dose: Not Given Polyethylene Glycol (Miralax) 17 gm PO DAILY PRN PRN Reason: Constipation Potassium Chloride (Klor-Con 10) 20 meq PO BID@1100,1700 [facility] Last Admin: 06/27/17 17:03 Dose: 20 meq Rosuvastatin Calcium (Crestor) 10 mg PO BEDTIME [facility] Last Admin: 06/27/17 20:44 Dose: 10 mg Senna/Docusate Sodium (Senna Plus) 1 tab PO BID PRN PRN Reason: Constipation Sodium Chloride (Saline Flush) 10 ml FLUSH ASDIRECTED PRN PRN Reason: Keep Vein Open Temazepam (Restoril) 7.5 mg PO BEDTIME PRN PRN Reason: Sleep Last Admin: 06/27/17 20:44 Dose: 7.5 mg Discontinued Medications Acetaminophen (Tylenol) 650 mg PO Q6H [facility] Last Admin: 06/26/17 18:39 Dose: Not Given Aspirin (Aspirin) 243 mg PO ONETIME ONE Stop: 06/26/17 12:40 Last Admin: 06/26/17 14:19 Dose: 243 mg Diphtheria/Tetanus/Acell Pertussis (Adacel) 0.5 ml IM .ONCE ONE Stop: 06/27/17 10:31 Hydromorphone HCl (Dilaudid) 0.25 mg IVPUSH Q4H PRN PRN Reason: Pain (severe 7-10) Ceftriaxone Sodium 1 gm/ (Sodium Chloride) 100 mls @ 200 mls/hr IV ONETIME ONE Stop: 06/26/17 12:39 Last Admin: 06/26/17 12:20 Dose: 200 mls/hr Labetalol HCl (Normodyne) 10 mg IVPUSH ONETIME ONE PRN Reason: Protocol Stop: 06/26/17 11:27 Last Admin: 06/26/17 11:37 Dose: 10 mg Lisinopril (Prinivil) 10 mg PO DAILY@1700 [facility] Lisinopril (Prinivil) 20 mg PO DAILY@1100 [facility] Sodium Chloride (Saline Flush) 10 ml FLUSH ASDIRECTED PRN PRN Reason: Keep Vein Open Last Admin: 06/26/17 11:40 Dose: 10 ml - Exam General: Cooperative (somewhat), No Acute Distress, Other (Awake) HEENT: Pupils Equal, Pupils Reactive Neck: Supple, Trachea Midline Lungs: Clear to Auscultation, Normal Respiratory Effort Cardiovascular: Regular Rate, Regular Rhythm GI/Abdominal Exam: Normal Bowel Sounds, Soft, Non-Tender, No Organomegaly, No Distention, No Abnormal Bruit, No Mass (Female) Exam: Deferred Back Exam: Normal Inspection, Decreased Range of Motion Extremities: Normal Inspection, Normal Range of Motion, Non-Tender, No Pedal Edema, Normal Capillary Refill Peripheral Pulses: 2+: Dorsalis Pedis (L), Dorsalis Pedis (R) Skin: Warm, Dry, Intact Neurological: Sensation Intact, Other (limited neuro exam b/c of altered mental status). No: Normal Gait, Strength Equal Bilateral Psy/Mental Status: Other (lethargic and confused) - Problem List Review Problem List Initiated/Reviewed/Updated: Yes - My Orders Last 24 Hours: My Active Orders 06/27/17 09:00 Patient's Own Medication [Ptom] 0 each PO DAILY 06/27/17 09:17 Vaccines to be Administered [RC] PER UNIT ROUTINE 06/27/17 11:00 Amiodarone [Cordarone] 400 mg PO DAILY@1100 Aspirin [Halfprin] 81 mg PO DAILY@1100 Clopidogrel [Plavix] 75 mg PO DAILY@1100 Levothyroxine [Synthroid] 88 mcg PO DAILY@1100 Potassium Chloride [Klor-Con 10] 20 meq PO BID@1100,1700 06/29/17 05:11 BASIC METABOLIC PANEL,BMP [CHEM] AM MAGNESIUM [CHEM] AM - Plan Plan:: Assessment/Plan: Acute: AMS - She looks tired and was up all night - Stat Head CT scan, if negative will have her rest for the rest of the day - Closely monitor 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, Pronator Drift, and Facial Droop - She presented to ED in Malignant HTN with a documented BP of 216/93 mmHg - Risk Factors: Hx/o CVA with residual aspiration, HTN, HLD, and Hx/o Cardiac Arrhythmias (on Amiodarone) - Head CT scan: negative for acute intra-cranial abnormality - She is already on 81 mg po ASA, 75 mg po Plavix and Lipitor 10 mg po daily - Stroke Protocol: Aspiration precaution, bedside swallowing study, CHIEF CLIENT OFFICER eval , PT/OT and Routine Neuro check - Unclear how how was her symptoms, since she woke up with symptoms - She would not be a good candidate for TPN, very high with her advance age and being on combo ASA/Plavix - Recommendations: Permissive hypertension with SBP 180-190 mmHg - Offered MRI/MRA in am but after carefully discussing the goals of treatment for her, family decided not to have Brain MRI and Head/Neck MRA since it unlikely that our medical management would change Asymptomatic Bacteriuria/UTI - UA not very impressive - She has no complaints - Continue 1 gram Rocephin IV and d/c after 4th dose - UA CX/Sx: E. coli sensitive to Rocephin Carotid Atherosclerosis - Duplex CArotid U/S report reads: Moderate amount of black pitting the left carotid bulb showing irregular surface contour. Velocity measurements in both internal carotid arteries correspond to stenosis in the range of 1-49% - ASA and Statin - Continue low chol diet HLD - On Crestor 10 mg, will increase dose to 20 mg po daily - Continue heart healthy/low chol diet Resolved: Malignant HTN - Unknown baseline, she does not really check her BP Meds - She presented to ED in Malignant HTN with a documented BP of 216/93 mmHg - She received initial treatment of 10 mg IV Labetolol x1 and her pressure dropped to 159/73 - Allow Permissive HTN in the setting of stroke - PRN Meds if SBP > 220 mmHg or DBP > 120 mmHg w/ Labetolol 10 mg IV for 1-2 mins may repeat dsoe q 10 mins to a maximum dose of 300 mg. If no response, may use Nicardipine IV per protocol Chronic: HTN, BP much more controlled Hypothyroidism Hypokalemia and Hypomagnesemia Pseudogout OA Hx/o CVA with Aspiration Hx/o Cardiac Arrhythmia Depression Plan: She is fairly stable hemodynamically Routine AM Labs Continue PT/OT/CHIEF CLIENT OFFICER SW/CM for d/c planning Recommend rehab/SNF placement Code status: DNR/DNI Additional orders as above LOS anticipate > 96hrs for rehab/snf placement
[2017-06-28] MEDS ORDERED: Pneumococcal 13-Valent Conjugate Vaccine 0.5 ML Syringe IM ONE (09:34)
--- NOTE | 2017-06-28 10:30 | CT ---
Head CT Technique: Multiple axial sections were obtained through the brain. Intravenous contrast was not utilized. Comparison: Previous head CT study of 06/26/17. Findings: Ventricles along with basal cisterns and sulci over the convexities are mildly prominent. Diminished density is noted within portions of the periventricular, subcortical basal ganglia compatible with small vessel ischemic demyelination change. Old small white matter infarcts are seen as well as old lacunar infarcts within the basal ganglia. No evidence of intracranial hemorrhage. No midline shift or mass effect is seen. Atherosclerotic calcification noted within the vertebral vessels and carotid siphon. Bone window settings were reviewed which appear within normal limits for the patient's age. Incidental skin lesion is seen within the scalp on the left side which is stable. Impression: 1. Senescent change as described above. 2. No significant change is appreciated from prior CT exam. Nothing acute is definitely appreciated. Diagnostic code #3
[2017-06-28] MEDS: Amiodarone 200 MG Tab PO SCH (10:47)
[2017-06-28] MEDS: Aspirin 81 MG Tab.EC PO SCH (10:48)
[2017-06-28] MEDS: Clopidogrel 75 MG Tab PO SCH (10:48)
[2017-06-28] MEDS: Potassium Chloride 10 MEQ Tab.ER PO SCH ×2 (10:48→17:03)
[2017-06-28] MEDS: cefTRIAXone 1 GM in Sodium Chloride 0.9% 100 ML IV SCH (10:49)
[2017-06-28] MEDS: Levothyroxine 88 MCG Tab PO SCH (10:49)
[2017-06-28] MEDS: Acetaminophen 325 MG Tab PO PRN (18:40)
[2017-06-28] MEDS ORDERED: Rosuvastatin 10 MG Tab PO SCH (21:00)
[2017-06-29] MEDS: Menthol/Methyl Salicylate 29 GM Tube TOP PRN (03:56)
[2017-06-29] MEDS: Acetaminophen/HYDROcodone 325-5 MG Tab PO PRN ×2 (03:56→08:40)
[2017-06-29] MEDS: Wheat Dextrin [Benefiber] PO SCH (08:32)
[2017-06-29] MEDS: Lisinopril 20 MG Tab PO SCH (08:43)
[2017-06-29] MEDS: Hydrochlorothiazide 12.5 MG Cap PO SCH (08:43)
[2017-06-29] MEDS: amLODIPine 5 MG Tab PO SCH (08:43)
[2017-06-29 08:44] VITALS: BP 131/61
--- NOTE | 2017-06-29 08:45 | PCM.DCSUM1 ---
Discharge Summary - Hospital Course Free Text/Narrative:: This is an 82 yo elderly white female with past medical hx/o HTN, HLD, Hypothyroidism, Hypokalemia and Hypomagnesemia, Pseudogout, Hx/o Cardiac Arrhythmia on Amiodarone, OA, and Depression who presents to ED with complaints of generalized weakness that started 06/26/17. Her chief complaint is associated with fatigue, 2 assist with standing, dragging left foot with walking and not using her left arm as well as flat affect. Patient carries a hx/o CVA with Aspiration. She lives at [facility] and is very independent. Her last known well was at about 1300 yesterday but woke up with the above symptoms this morning. Patient reports no issues. She denies any other neurologic deficits. Her initial workup in the emergency department showed a CBC that is unremarkable. Her chemistry is remarkable for anion gap 16, creatinine of 1.1, glucose of 141, alkaline phosphatase of 131. Her troponin and TSH levels are normal. Her UA is positive but not impressive for UTI. Her EKG shows sinus rhythm. Head CT scan V-rad report reads no acute intra-cranial abnormality. Patient was admitted for medical management of stroke. She is DNR/DNI. Follow- up CT scan was negative. She continues to have left sided weakness with pronator drift and facial droop. TPN was not given as she was not a good candidate. Permissive htn was allowed. MRI/MRA was offered, however after discussing treatment goals family decided not to have brain MRI/MRA as it would not likely change medical management. UA showed possible UTI and CX/SX grew out E. Coli sensitive to Rocephin. Last dose given today (06/29/17). Duplex CArotid U /S report reads: Moderate amount of black pitting the left carotid bulb showing irregular surface contour. Velocity measurements in both internal carotid arteries correspond to stenosis in the range of 1-49%. Due to this and HLD will continue with ASA and increase crestor to 20 mg. Continue heart healthy/low cholesterol diet. Radiographs were ordered as pt. complained of bilateral 10/10 knee pain when walking. Tylenol should be sufficient for pain relief. Can follow -up with PCP for this.Will request BP check 3 times per day 3-6 days per week. This report should be brought with to PCP for continued monitoring/medication adjustment. Discharge today 06/29/17 to [facility] for rehab and assistance. - Discharge Data Discharge Date: 06/29/17 (Admit date: 06/26/17) Discharge Disposition: DC/Tfer to SNF 03 Condition: Fair - Discharge Diagnosis/Problem(s) (1) Cerebrovascular accident (CVA) SNOMED Code(s): 075327748 ICD Code: I63.9 - CEREBRAL INFARCTION, UNSPECIFIED Status: Acute Priority : High Current Visit: Yes Qualifiers: CVA mechanism: embolism Precerebral and cerebral artery: unspecified cerebral artery Qualified Code(s): I63.40 - Cerebral infarction due to embolism of unspecified cerebral artery (2) HTN (hypertension) SNOMED Code(s): 64550518 ICD Code: I10 - ESSENTIAL (PRIMARY) HYPERTENSION Status: Acute Priority: High Current Visit: Yes Qualifiers: Hypertension type: unspecified Qualified Code(s): I10 - Essential (primary ) hypertension (3) Urinary tract infection SNOMED Code(s): 25390339 ICD Code: N39.0 - URINARY TRACT INFECTION, SITE NOT SPECIFIED Status: Acute Priority: High Current Visit: Yes Qualifiers: Urinary tract infection type: acute cystitis Hematuria presence: with hematuria Qualified Code(s): N30.01 - Acute cystitis with hematuria - Patient Summary/Data Consults: Consultations 06/26/17 17:21 Consult to Case Management [CONS] Routine Consult to Cash Posting Representative [CONS] Routine OT Evaluation and Treatment [CONS] Routine PT Evaluation and Treatment [CONS] Routine ENGINEER FIRST ASSISTANT Evaluation and Treatment [CONS] Routine - Patient Instructions Diet: Heart Healthy Diet Activity: As Tolerated Driving: Do Not Drive Showering/Bathing: May Shower Notify Provider of: Fever, Increased Pain, Nausea and/or Vomiting (worsening symptoms, chest pain, shortness of breath, ) - Discharge Plan Prescriptions/Med Rec: amLODIPine [Norvasc] 5 mg PO DAILY #30 tablet Hydrochlorothiazide 12.5 mg PO DAILY #30 cap Lisinopril [Prinivil] 20 mg PO BID #60 tablet Home Medications: Home Meds Aspirin [Low Dose Aspirin EC] 81 mg PO 1100 06/09/14 [History] Clopidogrel [Plavix] 75 mg PO 1100 06/09/14 [History] Potassium Chloride 20 meq PO 1100,1700 06/09/14 [History] Amiodarone [Cordarone] 400 mg PO 1100 08/23/14 [History] Levothyroxine [Synthroid] 88 mcg PO 1100 08/23/14 [History] Methyl Salicylate/Menthol [Bengay Greaseless Cream] 57 gm TP BID PRN 06/26/17 [ History] Wheat Dextrin [Benefiber] 1 each PO DAILY 06/26/17 [History] Acetaminophen [Tylenol] 650 mg PO Q4H PRN tablet 06/29/17 [Rx] Hydrochlorothiazide 12.5 mg PO DAILY #30 cap 06/29/17 [Rx] Lisinopril [Prinivil] 20 mg PO BID #60 tablet 06/29/17 [Rx] Rosuvastatin [Crestor] 20 mg PO BEDTIME tablet 06/29/17 [Rx] amLODIPine [Norvasc] 5 mg PO DAILY #30 tablet 06/29/17 [Rx] Patient Handouts: Stroke Prevention, [id number], Clopidogrel tablets, Urinary Tract Infection, Adult, Ischemic Stroke Treated Without Warfarin, Easy- to-Read, Hypertension, [id number], Aspirin, ASA oral tablets Referrals: Yarelis Giordano NP [ED Midlevel Provider] - Flaco Sears MD [Physician] - - Discharge Summary/Plan Comment DC Time >30 min.: Yes (40) - General Info Date of Service: 06/29/17 Admission Dx/Problem (Free Text: CVA Subjective Update: In to see patient as she is finishing up with PT. Pt. reports pt. has been having knee pain and difficulty walking. She was essentially slid from her chair to toilet seat to use the restroom. She is now sitting in recliner and alert. She answers questions appropriately. She has a rather flat affect. Reports no complaints now with minimal knee pain however when walking she reports 10/10 pain. She is still markedly weak on the left side, however this is the first day I have seen the patient and I am unable to compare to previous days. She follows commands. Functional Status: Reports: Pain Controlled, Tolerating Diet, Urinating - Review of Systems General: Reports: No Symptoms HEENT: Denies: Ear Pain, Eye Pain, Headaches, Sore Throat, Visual Changes Pulmonary: Denies: Shortness of Breath, Pleuritic Chest Pain, Cough, Wheezing Cardiovascular: Denies: Chest Pain, Palpitations, Dyspnea on Exertion, Orthopnea , Lightheadedness Gastrointestinal: Denies: Abdominal Pain, Constipation, Diarrhea, Nausea, Vomiting Genitourinary: Reports: Incontinence. Denies: Dysuria, Burning, Pain Musculoskeletal: Reports: No Symptoms Skin: Reports: No Symptoms Neurological: Reports: Pre-Existing Deficit (left sided weakness), Difficulty Walking, Weakness, Gait Disturbance. Denies: Confusion, Dizziness, Headache Psychiatric: Denies: Confusion, Depression, Mood Lability - Patient Data Vitals - Most Recent: Last Vital Signs Temp 98.2 F 06/28/17 15:24 Pulse 72 06/28/17 20:40 Resp 14 06/28/17 20:40 BP 125/66 06/28/17 20:42 Pulse Ox 91 L 06/28/17 20:40 Weight - Most Recent: 171 lb 8 oz I&O - Last 24 hours: Intake & Output 06/28/17 06/29/17 06/29/17 22:59 06:59 14:59 Intake Total 850 250 Output Total 800 200 Balance 50 50 Lab Results - Last 24 hrs: Laboratory Results - last 24 hr 06/29/17 Range/Units 05:47 Sodium 142 (136-145) mEq/L Potassium 3.6 (3.5-5.1) mEq/L Chloride 106 (98-107) mEq/L Carbon Dioxide 23 (21-32) mEq/L Anion Gap 16.6 H (5-15) BUN 25 H (7-18) mg/dL Creatinine 1.3 H (0.55-1.02) mg/dL Est Cr Clr Drug Dosing 28.99 mL/min Estimated GFR (MDRD) 39 (>60) mL/min BUN/Creatinine Ratio 19.2 H (14-18) Glucose 105 (83-115) mg/dL Calcium 9.2 (8.5-10.1) mg/dL Magnesium 1.9 (1.8-2.4) mg/dl Med Orders - Current: Current Medications Acetaminophen (Tylenol) 650 mg PO Q4H PRN PRN Reason: Pain (Mild 1-3)/fever Last Admin: 06/28/17 18:40 Dose: 650 mg Hydrocodone Bitart/Acetaminophen ([place] 325-5 Mg) 1 tab PO Q4H PRN PRN Reason: Pain (moderate 4-6) Last Admin: 06/29/17 03:56 Dose: 1 tab Albuterol/Ipratropium (Duoneb 3.0-0.5 Mg/3 Ml) 3 ml NEB Q4H PRN PRN Reason: Shortness Of Breath/wheezing Amiodarone HCl (Cordarone) 400 mg PO DAILY@1100 [facility] Last Admin: 06/28/17 10:47 Dose: 400 mg Amlodipine Besylate (Norvasc) 5 mg PO DAILY [facility] Last Admin: 06/28/17 08:23 Dose: 5 mg Aspirin (Halfprin) 81 mg PO DAILY@1100 [facility] Last Admin: 06/28/17 10:48 Dose: 81 mg Bisacodyl (Dulcolax) 5 mg PO DAILY PRN PRN Reason: Constipation Clopidogrel Bisulfate (Plavix) 75 mg PO DAILY@1100 [facility] Last Admin: 06/28/17 10:48 Dose: 75 mg Docusate Sodium (Colace) 100 mg PO BID PRN PRN Reason: Constipation Hydralazine HCl (Apresoline) 20 mg IVPUSH Q4H PRN PRN Reason: Hypertension Last Admin: 06/28/17 06:44 Dose: 20 mg Hydrochlorothiazide (Hydrochlorothiazide) 12.5 mg PO DAILY [facility] Last Admin: 06/28/17 08:22 Dose: 12.5 mg Hydromorphone HCl (Dilaudid) 0.25 mg IVPUSH Q4H PRN PRN Reason: Pain (severe 7-10) Promethazine HCl 12.5 mg/ (Sodium Chloride) 50.5 mls @ 100 mls/hr IV Q6H PRN PRN Reason: Nausea/Vomiting Ceftriaxone Sodium 1 gm/ (Sodium Chloride) 100 mls @ 200 mls/hr IV Q24H [facility] Last Admin: 06/28/17 10:49 Dose: 200 mls/hr Levothyroxine Sodium (Synthroid) 88 mcg PO DAILY@1100 [facility] Last Admin: 06/28/17 10:49 Dose: 88 mcg Lisinopril (Prinivil) 20 mg PO BID [facility] Last Admin: 06/28/17 20:42 Dose: 20 mg Lorazepam (Ativan) 0.25 mg IV Q6H PRN PRN Reason: Anxiety Last Admin: 06/26/17 21:19 Dose: 0.25 mg Methyl Salicylate (Analgesic [place]) 0 gm TOP BID PRN PRN Reason: sore joints Last Admin: 06/29/17 03:56 Dose: 1 applic Ondansetron HCl (Zofran) 4 mg IV Q6H PRN PRN Reason: Nausea/Vomiting Wheat Dextrin [ (Benefiber]) 0 each PO DAILY [facility] Last Admin: 06/28/17 08:28 Dose: Not Given Polyethylene Glycol (Miralax) 17 gm PO DAILY PRN PRN Reason: Constipation Potassium Chloride (Klor-Con 10) 20 meq PO BID@1100,1700 [facility] Last Admin: 06/28/17 17:03 Dose: 20 meq Rosuvastatin Calcium (Crestor) 20 mg PO BEDTIME [facility] Last Admin: 06/28/17 20:42 Dose: 20 mg Senna/Docusate Sodium (Senna Plus) 1 tab PO BID PRN PRN Reason: Constipation Sodium Chloride (Saline Flush) 10 ml FLUSH ASDIRECTED PRN PRN Reason: Keep Vein Open Temazepam (Restoril) 7.5 mg PO BEDTIME PRN PRN Reason: Sleep Last Admin: 06/27/17 20:44 Dose: 7.5 mg Discontinued Medications Acetaminophen (Tylenol) 650 mg PO Q6H [facility] Last Admin: 06/26/17 18:39 Dose: Not Given Aspirin (Aspirin) 243 mg PO ONETIME ONE Stop: 06/26/17 12:40 Last Admin: 06/26/17 14:19 Dose: 243 mg Diphtheria/Tetanus/Acell Pertussis (Adacel) 0.5 ml IM .ONCE ONE Stop: 06/27/17 10:31 Hydromorphone HCl (Dilaudid) 0.25 mg IVPUSH Q4H PRN PRN Reason: Pain (severe 7-10) Ceftriaxone Sodium 1 gm/ (Sodium Chloride) 100 mls @ 200 mls/hr IV ONETIME ONE Stop: 06/26/17 12:39 Last Admin: 06/26/17 12:20 Dose: 200 mls/hr Labetalol HCl (Normodyne) 10 mg IVPUSH ONETIME ONE PRN Reason: Protocol Stop: 06/26/17 11:27 Last Admin: 06/26/17 11:37 Dose: 10 mg Lisinopril (Prinivil) 10 mg PO DAILY@1700 [facility] Lisinopril (Prinivil) 20 mg PO DAILY@1100 [facility] Pneumococcal 13-Valent Conj Vacc (Prevnar 13) 0.5 ml IM .ONCE ONE Stop: 06/28/17 09:35 Rosuvastatin Calcium (Crestor) 10 mg PO BEDTIME [facility] Last Admin: 06/27/17 20:44 Dose: 10 mg Sodium Chloride (Saline Flush) 10 ml FLUSH ASDIRECTED PRN PRN Reason: Keep Vein Open Last Admin: 06/26/17 11:40 Dose: 10 ml - Exam Quality Assessment: Denies: Supplemental Oxygen General: Reports: Alert, Oriented, Cooperative HEENT: Reports: Pupils Equal, Pupils Reactive, EOMI Neck: Reports: Supple, Trachea Midline, No JVD Lungs: Reports: Clear to Auscultation, Normal Respiratory Effort Cardiovascular: Reports: Regular Rate, Regular Rhythm, No Murmurs GI/Abdominal Exam: Normal Bowel Sounds, Soft, Non-Tender, No Distention (Female) Exam: Deferred Rectal (Female) Exam: Deferred Back Exam: Reports: Normal Inspection, Decreased Range of Motion Extremities: Normal Inspection, Limited Range of Motion Skin: Reports: Warm, Dry, Intact Neurological: Reports: Normal Speech, Normal Tone, Sensation Intact. Denies: Normal Gait, Strength Equal Bilateral (Left sided arm and leg weakness ) Psy/Mental Status: Reports: Alert. Denies: Normal Affect (Flat ), Suicidal Ideation Physical Findings Comments:: She is hemodynamically stable and follows commands today. *Q Meaningful Use (DIS) - VTE *Q VTE Criteria *Q: - Stroke *Q Stroke Criteria *Q: - AMI *Q AMI Criteria *Q:
[2017-06-29] MEDS: Levothyroxine 88 MCG Tab PO SCH (11:15)
[2017-06-29] MEDS: Clopidogrel 75 MG Tab PO SCH (11:15)
[2017-06-29] MEDS: cefTRIAXone 1 GM in Sodium Chloride 0.9% 100 ML IV SCH (11:15)
[2017-06-29] MEDS: Aspirin 81 MG Tab.EC PO SCH (11:15)
[2017-06-29] MEDS: Amiodarone 200 MG Tab PO SCH (11:15)
[2017-06-29] MEDS: Potassium Chloride 10 MEQ Tab.ER PO SCH (11:15)
--- NOTE | 2017-06-29 11:36 | CR ---
Right knee: AP and lateral views of the right knee were obtained. Severe lateral joint space narrowing is seen with lateral osteophytes. Chondrocalcinosis is noted within the medial meniscus. Small joint effusion is seen. Slight vascular calcification is noted. Osteopenia is noted. Impression: 1. Degenerative change as noted above. Chondrocalcinosis. Osteopenia and small joint effusion. Diagnostic code #2
--- NOTE | 2017-06-29 11:36 | CR ---
Left knee: AP and lateral views of the left knee were obtained. Comparison: No previous knee exam. Mild medial joint space narrowing is seen. Chondrocalcinosis is noted within the lateral meniscus. Calcification is seen above the patella within the suprapatellar pouch presumably due to synovial calcification. Osteopenia is noted. Nothing acute is appreciated. Impression: 1. Osteopenia, chondrocalcinosis and degenerative change. Diagnostic code #2
== END 2017-06-29 13:13 | DRG 66 ==
LOC: JD.ED 11:03 → JD.MS 12:47 → UNDOADMIN 12:47 → JD.MS 14:14 → UNDODISIN 06-29 13:13
PROVIDERS: ADMIT Internal Medicine; ATTEND Internal Medicine
DX: I63.40 Cerebral infarction due to embolism of unspecified cerebral artery (principal); N30.01 Acute cystitis with hematuria; I10 Essential (primary) hypertension; E78.5 Hyperlipidemia, unspecified; E03.9 Hypothyroidism, unspecified; M11.20 Other chondrocalcinosis, unspecified site; M19.90 Unspecified osteoarthritis, unspecified site; Z86.73 Personal history of transient ischemic attack (TIA), and cerebral infarction without residual deficits; F32.9 Major depressive disorder, single episode, unspecified; Z66 Do not resuscitate; H54.7 Unspecified visual loss; Z91.018 Allergy to other foods; Z79.82 Long term (current) use of aspirin; Z79.899 Other long term (current) drug therapy; R41.82 Altered mental status, unspecified; B96.20 Unspecified Escherichia coli [E. coli] as the cause of diseases classified elsewhere; I49.9 Cardiac arrhythmia, unspecified; Z23 Encounter for immunization
CPT/HCPCS: 70450; 96365; 99285; 93005; 96375; 85025; 85730; 85610; 81001; 36415; 82962; 80053; 84484; 86140; 84443; 87086; 87186; J7030; J7050; J0696; 73560-26-LT; 73560-26-RT; 73560-LT; 73560-RT; 80048; 80061; 83735; 87088; 87641; 90670; 90715; 92610-GN; 93880; 93880-26; 97110-GP; 97116-GP; 97140-GO; 97162-GP; 97166-GO; 97530-GO; 97530-GP; A9270-GY; G0009; J0360; J2060